=== PATIENT | female | born 1960 | race African-American/Black ===

== ENCOUNTER 2019-09-27 22:25 | Observation (INO) | payer BC ==
--- NOTE | 2019-09-27 22:29 | PDOC ---
History of Present Illness - General Stated Complaint: CHEST PAIN AND DIZZINESS - History of Present Illness Initial Comments: 09/27/19 22:52 59 year old woman on zoloft for 3 weeks, who presents with lightheadedness and hand numbness and tingling that occurred just prior to arrival. The patient reports that she felt "unlike herself." At the time she felt lightheaded she took her blood sugar and it was 98. She reports that her hand numbness nad tingling has resolved but she stills feels some lightheadedness. She denies any nausea, vomiting, fever, cough, congestion, chest pain, shortness of breath, dysuria, hematuria, diarrhea, constipations or abdominal pain. She has no other complaints. ROS GENERAL/CONSTITUTIONAL: No fever or chills. No weakness. HEAD, EYES, EARS, NOSE AND THROAT: No change in vision. No ear pain or discharge. No sore throat. CARDIOVASCULAR: No chest pain or shortness of breath RESPIRATORY: No cough, wheezing, or hemoptysis. GASTROINTESTINAL: No nausea, vomiting, diarrhea or constipation. GENITOURINARY: No dysuria, frequency, or change in urination. MUSCULOSKELETAL: No joint or muscle swelling or pain. No neck or back pain. SKIN: No rash NEUROLOGIC: No headache, vertigo, loss of consciousness, or change in strength/sensation. ENDOCRINE: No increased thirst. No abnormal weight change HEMATOLOGIC/LYMPHATIC: No anemia, easy bleeding, or history of blood clots. ALLERGIC/IMMUNOLOGIC: No hives or skin allergy. PE GENERAL: Awake, alert, and fully oriented, in no acute distress HEAD: No signs of trauma, normocephalic, atraumatic EYES: PERRLA, EOMI, sclera anicteric, conjunctiva clear ENT: oropharynx clear without exudates. Moist mucosa NECK: Normal ROM, supple LUNGS: No distress, speaks full sentences, clear to auscultation bilaterally HEART: Regular rate and rhythm, normal S1 and S2, no murmurs, rubs or gallops, peripheral pulses normal and equal bilaterally. ABDOMEN: Soft, nontender. No guarding, no rebound. No masses EXTREMITIES : Normal inspection, Normal range of motion, no edema. No clubbing or cyanosis. NEUROLOGICAL: Cranial nerves II through XII grossly intact. Normal speech, normal gait, no focal sensorimotor deficits, negative romberg SKIN: Warm, Dry, normal turgor, no rashes or lesions noted Assessment and Plan 59 year old woman on zoloft for 3 weeks, who presents with lightheadedness and hand numbness and tingling that occurred just prior to arrival. The patient reports that she felt "unlike herself." Consider cva vs acs vs electroy,lte derangment vs thyroid dernamgent vs infectious Fever on intial vitals entered incorrectly, pt afebrile NIHSS 0 Sign out to overnight resident Lori Mujica PGY2 Emergency Medicine 09/27/19 23:03 NIH Stroke Scale - Last Known Well Date/Time & Onset Date Last Known Well: 09/27/19 Time Last Known Well: 22:00 - Initial Evaluation Level of consciousness: Alert Ask patient the month and their age: Answers both correctly Ask patient to open & close eyes; make fist and let go: Obeys both correctly Best gaze (horizontal eye movement): Normal Visual field testing: No visual field loss Facial paresis (Show teeth/raise eyebrows/close eyes tight): Normal symmetrical movement Motor Function: Left Arm: Normal Motor Function: Right Arm: Normal (extends arm 90 (or 45) degrees for 10 seconds without drift Motor Function: Left Leg: Normal (extends leg 30 degrees for 5 seconds without drift) Motor Function: Right Leg: Normal (extends leg 30 degrees for 5 seconds without drift) Limb Ataxia: No ataxia Sensory(Use pinprick test arms,legs,trunk,face/side to side): Normal Best language (Describe picture, name items, read sentences): No Aphasia Dysarthria (read several words): Normal articulation Extinction and Inattention: No abnormality - Total Score NIH Stroke Scale Score: 0 Past History - Medical History Allergies/Adverse Reactions: Allergies Allergy/AdvReac Type Severity Reaction Status Date / Time Penicillins Allergy Verified 09/27/19 22:43 ED Treatment Course - LABORATORY CBC & Chemistry Diagram: 09/29/19 05:35 09/29/19 05:35 Discharge - Discharge Information Problems reviewed: Yes Clinical Impression/Diagnosis: Near syncope Hypothyroid Qualifiers: Hypothyroidism type: unspecified Qualified Code(s): E03.9 - Hypothyroidism, unspecified Condition: Stable Disposition: HOME - Follow up/Referral - Patient Discharge Instructions - Post Discharge Activity Vital Signs - Vital Signs Temperature: 97.4 F Temperature source: Oral Blood Pressure: 114/65
--- NOTE | 2019-09-27 23:06 | PDOC ---
Documentation entered by Ludy Finley SCRIBE, acting as scribe for Jonathan Chatman MD. Jonathan Chatman MD: This documentation has been prepared by the Tushar jung Brenda, SCRIBE, under my direction and personally reviewed by me in its entirety. I confirm that the documentation accurately reflects all work, treatment, procedures, and medical decision making performed by me. Attending Attestation - Resident Resident Name: Lori Mujica - ED Attending Attestation I have performed the following: I have examined & evaluated the patient, The case was reviewed & discussed with the resident, I agree w/resident's findings & plan, Exceptions are as noted - HPI HPI: 09/27/19 23:06 59 F with no PMH presents to ED with dizziness. Pt states that she was rounding in the hospital when she suddenly felt very dizzy, as if she were about to faint. Pt denies room-spinning sensation. Pt also notes that she felt very "out of it". She describes it as a disoriented feeling. Pt denies any weakness/numbness in any extremity. Denies any slurred speech or facial droop. Pt states that the symptoms began about 1 hour prior to arrival to ED. She no longer feels lightheaded but still feels disoriented. Denies CP/SOB. Denies N/V/D. Denies F/C. Denies OLIVERA/neck pain. - Physicial Exam PE: 09/27/19 23:08 "GENERAL: Awake, alert, and fully oriented, in no acute distress. HEAD: No signs of trauma EYES: PERRLA, EOMI, sclera anicteric, conjunctiva clear ENT: Auricles normal inspection, hearing grossly normal, nares patent, oropharynx clear without exudates. Moist mucosa NECK: Nontender, no stepoffs, Normal ROM, supple, no lymphadenopathy, JVD, or masses LUNGS: Breath sounds equal, clear to auscultation bilaterally. No wheezes, and no crackles HEART: Regular rate and rhythm, normal S1 and S2, no murmurs, rubs or gallops ABDOMEN: Soft, nontender, normoactive bowel sounds. No guarding, no rebound. No masses EXTREMITIES: Normal range of motion, no edema. No clubbing or cyanosis. No cord s, erythema, or tenderness NEUROLOGICAL: Cranial nerves II through XII intact. 5/5 strength and sensation in all extremities, Normal speech, normal gait, normal cerebellar function SKIN: Warm, Dry, normal turgor, no rashes or lesions noted. - Medical Decision Making 09/27/19 23:08 59 F with lightheadedness and disorientation. Has completely normal neuro exam in ED, ambulatory with steady gait. No evidence of CVA. Will r/o ACS with EKG and trop. - Labs, trop - EKG - CXR - CT head 09/28/19 00:05 EKG unremarkable Labs wnl CT head normal Pt signed out to Dr. Gonzalez at 12AM, pending 2nd trop and re-evaluation Discharge - Discharge Information Problems reviewed: Yes Clinical Impression/Diagnosis: Near syncope Hypothyroid Qualifiers: Hypothyroidism type: unspecified Qualified Code(s): E03.9 - Hypothyroidism, unspecified Condition: Stable - Follow up/Referral - Patient Discharge Instructions - Post Discharge Activity
[2019-09-27] MEDS ORDERED: SODIUM CHLORIDE 1,000 ML IV STA (23:08)
[2019-09-27 23:22] LABS: BASO % 0.7 % (0-2.0); HEMATOCRIT 38.1 % (32.4-45.2); HEMOGLOBIN 12.9 GM/dL (10.7-15.3); LYMPH % 48.5 % (8-40); MCH 30.6 pg (25.7-33.7); MCHC 33.7 g/dl (32.0-36.0); MEAN CELL VOLUME 90.6 fl (80-96); MEAN PLT VOLUME 8.5 fl (7.5-11.1); MONO % 9.8 % (3.8-10.2); PLATELET COUNT 270 K/MM3 (134-434); RBC 4.21 M/mm3 (3.60-5.2); RDW 13.1 % (11.6-15.6); WHITE BLOOD COUNT 8.1 K/mm3 (4.0-10.0)
[2019-09-27 23:47] LABS: ALK PHOS 46 U/L (45-117); ANION GAP 7 MMOL/L (8-16); BILIRUBIN,TOTAL 0.3 mg/dL (0.2-1); BLOOD UREA NITROGEN 25.2 mg/dL (7-18); CALCIUM 8.9 mg/dL (8.5-10.1); CHLORIDE 102 mmol/L (98-107); CO2 27 mmol/L (21-32); CREATININE 0.9 mg/dL (0.55-1.3); GLUCOSE,RANDOM 119 mg/dL (74-106); N-TERMINAL BNP 35.7 pg/ml (5-125); POTASSIUM 4.2 mmol/L (3.5-5.1); SGOT/AST 15 U/L (15-37); SGPT/ALT 22 U/L (13-61); SODIUM 137 mmol/L (136-145); TOT PROT 7.4 g/dl (6.4-8.2)
--- NOTE | 2019-09-28 00:08 | PDOC ---
*Physical Exam - Vital Signs Last Vital Signs Temp Pulse Resp BP Pulse Ox 97.4 F L 70 20 114/65 100 09/27/19 23:55 09/27/19 22:39 09/27/19 22:39 09/27/19 23:55 09/27/19 22:39 ED Treatment Course - LABORATORY CBC & Chemistry Diagram: 09/27/19 23:04 09/27/19 23:04 - ADDITIONAL ORDERS Additional order review: Laboratory Results 09/27/19 09/27/19 23:04 23:04 Sodium 137 Potassium 4.2 Chloride 102 Carbon Dioxide 27 Anion Gap 7 L BUN 25.2 H Creatinine 0.9 Est GFR (CKD-EPI)AfAm 81.69 Est GFR (CKD-EPI)NonAf 70.48 Random Glucose 119 H Calcium 8.9 Total Bilirubin 0.3 AST 15 ALT 22 Alkaline Phosphatase 46 Creatine Kinase 106 Troponin I < 0.02 B-Natriuretic Peptide 35.7 Total Protein 7.4 Albumin 4.0 Serum , Qual Negative 09/27/19 23:04 RBC 4.21 MCV 90.6 MCHC 33.7 RDW 13.1 MPV 8.5 Neutrophils % 38.0 L Lymphocytes % 48.5 H Monocytes % 9.8 Eosinophils % 3.0 Basophils % 0.7 Medical Decision Making - Medical Decision Making Pt was signed out to me by resident Dr. Mujica, who explained the presentation, ED course, any pending results, and needed interventions. Pending results include CTH and repeat troponin @2am. Pt is currently stable and is lying comfortably. CTH without acute pathology. Labs WNL Pending repeat trop @2 am. 09/28/19 00:07 Pt persistently light-headed TSH elevated, sent T4 and second troponin Pre-renal, likely dehydration, dieting. Pts mother had CA at age 50s. Pt to be admitted for tele/obs for further monitoring and symptomatic impro vement. Given persistent symptoms and early cardiac in family, pt is not safe discharge home. 09/28/19 03:14 Discharge - Discharge Information Problems reviewed: Yes Clinical Impression/Diagnosis: Near syncope Hypothyroid Qualifiers: Hypothyroidism type: unspecified Qualified Code(s): E03.9 - Hypothyroidism, unspecified Condition: Stable - Admission Yes - Follow up/Referral - Patient Discharge Instructions - Post Discharge Activity
--- NOTE | 2019-09-28 00:16 | PDOC ---
*Physical Exam - Vital Signs Last Vital Signs Temp Pulse Resp BP Pulse Ox 97.4 F L 70 20 114/65 100 09/27/19 23:55 09/27/19 22:39 09/27/19 22:39 09/27/19 23:55 09/27/19 22:39 Heart Score/ECG Review - History History: Slightly suspicious - Electrocardiogram EKG: Non specific repolarization disturbance - Age Age: 45-65 - Risk Factors Risk Factors Heart Score: Yes Positive family hx of cardiac disease, Yes Hx O besity Based on the list above the patient has:: 1-2 risk factors - Troponin Troponin: </= normal limit - Score Heart Score - Total: 3 ED Treatment Course - LABORATORY CBC & Chemistry Diagram: 09/27/19 23:04 09/27/19 23:04 - ADDITIONAL ORDERS Additional order review: Laboratory Results 09/27/19 09/27/19 23:04 23:04 Sodium 137 Potassium 4.2 Chloride 102 Carbon Dioxide 27 Anion Gap 7 L BUN 25.2 H Creatinine 0.9 Est GFR (CKD-EPI)AfAm 81.69 Est GFR (CKD-EPI)NonAf 70.48 Random Glucose 119 H Calcium 8.9 Total Bilirubin 0.3 AST 15 ALT 22 Alkaline Phosphatase 46 Creatine Kinase 106 Troponin I < 0.02 B-Natriuretic Peptide 35.7 Total Protein 7.4 Albumin 4.0 Serum , Qual Negative 09/27/19 23:04 RBC 4.21 MCV 90.6 MCHC 33.7 RDW 13.1 MPV 8.5 Neutrophils % 38.0 L Lymphocytes % 48.5 H Monocytes % 9.8 Eosinophils % 3.0 Basophils % 0.7 Medical Decision Making - Medical Decision Making 09/28/19 00:13 Pt signed out to me. She works at [employer] and she had an episode of dizziness and feeling unwell on the patient floors at work. 09/28/19 00:18 Pt has one normal blood test set. SHe will have a rtepeat cardiac enzyme test done at 2AM 09/28/19 02:44 Patient Name: HOSEA JOHNSON THIS IS A PRELIMINARY REPORT FROM [facility] EXAM: CT Head wo IMAGES: 222 EXAM DATE AND TIME: 2019-09-27 23:27:39 HISTORY: 59 year old woman: Stroke symptoms. COMPARISON: None TECHNIQUE: Non-contrast axial images were obtained. Coronal and sagittal images were also generated. FINDINGS: The cerebral sulci and ventricles are normal in size. There are no intracranial hemorrhages, extra-axial fluid collections or evidence of an intra-axial mass lesion. There is no clear evidence of chronic ischemic demyelination. Cerebral ortega/white matter differentiation is preserved, without clear evidence of an acute ischemic lesion at this time. Orbital and petrous structures, cerebellopontine angles, and posterior fossa appear unremarkable. The paranasal and mastoid sinuses are clear. IMPRESSION: Normal CT scan of the head. No evidence of acute or chronic ischemic change. No intracranial hemorrhages, extra-axial fluid collections or intra-axial mass lesion. Discharge - Discharge Information Problems reviewed: Yes Clinical Impression/Diagnosis: Near syncope Condition: Guarded - Follow up/Referral - Patient Discharge Instructions - Post Discharge Activity
[2019-09-28 02:08] LABS: MAGNESIUM 2.2 mg/dL (1.8-2.4)
[2019-09-28 03:19] LABS: MAGNESIUM 2.3 mg/dL (1.8-2.4)
--- NOTE | 2019-09-28 03:23 | PN ---
Teaching Attending Note Name of Resident: Tawana Zhu ATTENDING PHYSICIAN STATEMENT I saw and evaluated the patient. I reviewed the resident's note and discussed the case with the resident. I agree with the resident's findings and plan as documented. SUBJECTIVE: 59 F with no PMH presents to ED with presyncope OBJECTIVE: VSS Gen NAD well appearing Cardiac s1 s2 no m/r/g CTA BL Lung Abdomen obese soft non distended Neuro exam non focal Ext no edema Labs: grossly unremarkable ASSESSMENT AND PLAN: 59 F with no PMH presents to ED with lightheadedness and presyncope feeling like things are blacking out and occurred in seated position. Trop and EKG X3 Tele monitoring Orthostatic VS Tele monitoring Had symptoms from seated position Orthostatic VS DVT Px HSQ 5K BID Diet regular
--- NOTE | 2019-09-28 03:43 | HP ---
CHIEF COMPLAINT: lightheadedness x 1 day PCP: HISTORY OF PRESENT ILLNESS: 59 y/o F with no significant PMH who presents today for lightheadedness x 1 day. Per pt, she was [facility] when she felt lightheaded. States that she felt as if she would pass out, however never syncop ized or had LOC. Had a recent dietary change where she has been having 6 small meals a day of 1400 calories total. Denies use of any supplements, dieting aids, or herbs/special drinks. Denies recent stressors. Has tried to stay hydrated. Denies OLIVERA, fever, chills, SOB, chest pain or pressure or changes in urinary or bowel function. 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 She was also started on zoloft recently (3 weeks ago). ER course was notable for: (1) 1L IV NS (2) TSH 5.50, repeat 4.90 (3) trop (-) x 1 Recent Travel: denies PAST MEDICAL HISTORY: as above PAST SURGICAL HISTORY: breast reduction sx Social History: Smoking: denies Alcohol: occasional wine Drugs: denies Allergies Penicillins Allergy (Verified 09/27/19 22:43) - pruritis HOME MEDICATIONS: Home Medications Medication Instructions Recorded Sertraline HCl [Zoloft] 25 mg PO DAILY 09/27/19 PHYSICAL EXAMINATION Vital Signs - 24 hr 09/27/19 09/27/19 09/28/19 22:39 23:55 03:07 Temperature 97.5 F L 97.4 F L 97.3 F L Pulse Rate 70 Pulse Rate [ 83 Right Radial] Respiratory 20 18 Rate Blood Pressure 99/84 114/65 Blood Pressure 126/70 [Left Arm] O2 Sat by Pulse 100 100 Oximetry (%) general: resting, in NAD HEENT: NCAT neck: supple cardio: S1, S2 , RRR. no r/m/g pulm: CTA b/l. 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 Laboratory Results - last 24 hr 09/27/19 09/27/19 09/27/19 23:04 23:04 23:04 WBC 8.1 RBC 4.21 Hgb 12.9 Hct 38.1 MCV 90.6 MCH 30.6 MCHC 33.7 RDW 13.1 Plt Count 270 MPV 8.5 Absolute Neuts (auto) 3.1 Neutrophils % 38.0 L Lymphocytes % 48.5 H Monocytes % 9.8 Eosinophils % 3.0 Basophils % 0.7 Nucleated RBC % 0 Sodium 137 Potassium 4.2 Chloride 102 Carbon Dioxide 27 Anion Gap 7 L BUN 25.2 H Creatinine 0.9 Est GFR (CKD-EPI)AfAm 81.69 Est GFR (CKD-EPI)NonAf 70.48 Random Glucose 119 H Hemoglobin A1c % Calcium 8.9 Phosphorus 4.0 Magnesium 2.2 Total Bilirubin 0.3 AST 15 ALT 22 Alkaline Phosphatase 46 Creatine Kinase 106 Troponin I < 0.02 B-Natriuretic Peptide 35.7 Total Protein 7.4 Albumin 4.0 TSH 5.50 H Serum , Qual Negative 09/27/19 09/28/19 23:04 01:56 WBC RBC Hgb Hct MCV MCH MCHC RDW Plt Count MPV Absolute Neuts (auto) Neutrophils % Lymphocytes % Monocytes % Eosinophils % Basophils % Nucleated RBC % Sodium Potassium Chloride Carbon Dioxide Anion Gap BUN Creatinine Est GFR (CKD-EPI)AfAm Est GFR (CKD-EPI)NonAf Random Glucose Hemoglobin A1c % 6.1 Calcium Phosphorus 4.0 Magnesium 2.3 Total Bilirubin AST ALT Alkaline Phosphatase Creatine Kinase Troponin I B-Natriuretic Peptide Total Protein Albumin TSH 4.90 H Serum , Qual ASSESSMENT/PLAN: 59 y/o F with no significant PMH who presents today for lightheadedness x 1 day. #Presyncope -possible etiologies include: 2/2 zoloft use, thyroid dz, dehydration (pre- renal), r/o arrhythmia -also possible 2/2 dietary caloric restriction -TSH elevated, f/u free t4 -will order utox -will check orthostatics. however currently has received IVF -tele monitoring -trop (-) x 1. will c/t trend -no acute changes on EKG -IV NS 100 cc/hr -will hold zoloft #pre-renal SUMA likely 2/2 dehydration -IVF as above, 100 cc/hr -c/t monitor #health maintenance #obesity -f/u a1c, lipid panel -dietary consult #F/E/N IV NS 100 cc/hr continue to follow lytes reg diet #PPX DVT: early ambulation #Dispo tele-obs anticipate d/c 24-48 hrs Visit type - Emergency Visit Emergency Visit: Yes ED Registration Date: 09/28/19 Care time: The patient presented to the Emergency Department on the above date and was hospitalized for further evaluation of their emergent condition. - New Patient This patient is new to me today: Yes Date on this admission: 09/28/19 - Critical Care Critical Care patient: No
[2019-09-28] MEDS: SODIUM CHLORIDE 1,000 ML IV SCH ×2 (05:01→22:38)
--- NOTE | 2019-09-28 11:19 | PN ---
<Lori Pulliam - Last Filed: 09/28/19 16:36> Physical Exam: SUBJECTIVE: Patient seen and examined. C/o mild lightheadedness. OBJECTIVE: Vital Signs Period Temp Pulse Resp BP Sys/Ruiz Pulse Ox Last 24 Hr 97.3 F-97.5 F 70-83 16-20 99-126/63-84 98-100 GENERAL: The patient is awake, alert, and fully oriented, in no acute distress. HEENT: NCAT. MMM. LUNGS: Breath sounds equal, clear to auscultation bilaterally, no wheezes, no crackles, no accessory muscle use. HEART: Regular rate and rhythm, S1, S2 without murmur, rub or gallop. ABDOMEN: Soft, nontender, nondistended, normoactive bowel sounds, no guarding. EXTREMITIES: 2+ pulses, warm, well-perfused, no edema. NEUROLOGICAL: Cranial nerves II through XII grossly intact. Romberg's negative. PSYCH: Normal mood, normal affect. SKIN: Warm, dry, normal turgor, no rashes or lesions noted Laboratory Results - last 24 hr 09/27/19 09/27/19 09/27/19 23:04 23:04 23:04 WBC 8.1 RBC 4.21 Hgb 12.9 Hct 38.1 MCV 90.6 MCH 30.6 MCHC 33.7 RDW 13.1 Plt Count 270 MPV 8.5 Absolute Neuts (auto) 3.1 Neutrophils % 38.0 L Lymphocytes % 48.5 H Monocytes % 9.8 Eosinophils % 3.0 Basophils % 0.7 Nucleated RBC % 0 Sodium 137 Potassium 4.2 Chloride 102 Carbon Dioxide 27 Anion Gap 7 L BUN 25.2 H Creatinine 0.9 Est GFR (CKD-EPI)AfAm 81.69 Est GFR (CKD-EPI)NonAf 70.48 Random Glucose 119 H Hemoglobin A1c % Calcium 8.9 Phosphorus 4.0 Magnesium 2.2 Total Bilirubin 0.3 AST 15 ALT 22 Alkaline Phosphatase 46 Creatine Kinase 106 Troponin I < 0.02 B-Natriuretic Peptide 35.7 Total Protein 7.4 Albumin 4.0 TSH 5.50 H Free T4 Serum , Qual Negative 09/27/19 09/28/19 09/28/19 23:04 01:56 05:00 WBC RBC Hgb Hct MCV MCH MCHC RDW Plt Count MPV Absolute Neuts (auto) Neutrophils % Lymphocytes % Monocytes % Eosinophils % Basophils % Nucleated RBC % Sodium Potassium Chloride Carbon Dioxide Anion Gap BUN Creatinine Est GFR (CKD-EPI)AfAm Est GFR (CKD-EPI)NonAf Random Glucose Hemoglobin A1c % 6.1 Calcium Phosphorus 4.0 Magnesium 2.3 Total Bilirubin AST ALT Alkaline Phosphatase Creatine Kinase Troponin I < 0.02 < 0.02 B-Natriuretic Peptide Total Protein Albumin TSH 4.90 H Free T4 1.07 Serum , Qual Active Medications Generic Name Dose Route Start Last Admin Trade Name Freq PRN Reason Stop Dose Admin Sodium Chloride 1,000 mls @ 100 mls/hr 09/28/19 03:45 09/28/19 05:01 Normal Saline - IV 100 mls/hr ASDIR CHADD Administration IMAGING: * CXR: No pneumothorax is seen. There is no obvious infiltrate or pleural effusion. The heart, jim and mediastinum demonstrate no obvious pathology. The osseous thorax as visualized demonstrates no gross acute abnormality. * CT head: Negative exam. no discrete noncontrast CT pathology is noted. ASSESSMENT/PLAN: 59 y.o. 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 #Presyncope -possible etiologies include: 2/2 zoloft use, thyroid dz, dehydration (+ azotemia), r/o arrhythmia, dietary restrictions -TSH 5.5; T4 WNL. -- will need repeat TFT's in 6-8 weeks as outpatient -orthostatics negative; f/u repeat today -s/p 1L IVF -trop negative x 3 -continue cardiac monitoring -EKG shows no signs of ischemia -f/u cardio recs -holding home zoloft #pre-renal azotemia likely 2/2 dehydration -s/p 1L NS -cont to monitor #Pre-diabetes mellitus #Obesity -A1c 6.1 % -f/u lipid panel -coil inspector consulted #FEN -no standing fluids -monitor & replete lytes prn -reg diet #PPX -DVT: early ambulation #Dispo telemetry Visit type - Emergency Visit Emergency Visit: Yes ED Registration Date: 09/28/19 Care time: The patient presented to the Emergency Department on the above date and was hospitalized for further evaluation of their emergent condition. - New Patient This patient is new to me today: Yes Date on this admission: 09/28/19 - Critical Care Critical Care patient: No ATTENDING PHYSICIAN STATEMENT I saw and evaluated the patient. I reviewed the resident's note and discussed the case with the resident. I agree with the resident's findings and plan as documented. SUBJECTIVE: OBJECTIVE: ASSESSMENT AND PLAN: <Carlos Alberto Barbosa - Last Filed: 09/28/19 17:11> Physical Exam: SUBJECTIVE: Patient seen and examined at bedside. States she feels better. "Still not 100%" per patient. Not on telemetry in ER. Orthostatics negative. OBJECTIVE: Vital Signs Period Temp Pulse Resp BP Sys/Ruiz Pulse Ox Last 24 Hr 97.3 F-97.5 F 70-83 16-20 99-126/63-84 97-100 On exam she is AAOx3. RRR on cardiac exam. ABD is soft non tender non distended. Moist oral mucosa. no conjunctival pallor. trace edema of bilateral lower extremities. Laboratory Results - last 24 hr 09/27/19 09/27/19 09/27/19 23:04 23:04 23:04 WBC 8.1 RBC 4.21 Hgb 12.9 Hct 38.1 MCV 90.6 MCH 30.6 MCHC 33.7 RDW 13.1 Plt Count 270 MPV 8.5 Absolute Neuts (auto) 3.1 Neutrophils % 38.0 L Lymphocytes % 48.5 H Monocytes % 9.8 Eosinophils % 3.0 Basophils % 0.7 Nucleated RBC % 0 Sodium 137 Potassium 4.2 Chloride 102 Carbon Dioxide 27 Anion Gap 7 L BUN 25.2 H Creatinine 0.9 Est GFR (CKD-EPI)AfAm 81.69 Est GFR (CKD-EPI)NonAf 70.48 Random Glucose 119 H Hemoglobin A1c % Calcium 8.9 Phosphorus 4.0 Magnesium 2.2 Total Bilirubin 0.3 AST 15 ALT 22 Alkaline Phosphatase 46 Creatine Kinase 106 Troponin I < 0.02 B-Natriuretic Peptide 35.7 Total Protein 7.4 Albumin 4.0 Triglycerides Cholesterol Total LDL Cholesterol HDL Cholesterol TSH 5.50 H Free T4 Serum , Qual Negative 09/27/19 09/28/19 09/28/19 23:04 01:56 05:00 WBC RBC Hgb Hct MCV MCH MCHC RDW Plt Count MPV Absolute Neuts (auto) Neutrophils % Lymphocytes % Monocytes % Eosinophils % Basophils % Nucleated RBC % Sodium Potassium Chloride Carbon Dioxide Anion Gap BUN Creatinine Est GFR (CKD-EPI)AfAm Est GFR (CKD-EPI)NonAf Random Glucose Hemoglobin A1c % 6.1 Calcium Phosphorus 4.0 Magnesium 2.3 Total Bilirubin AST ALT Alkaline Phosphatase Creatine Kinase Troponin I < 0.02 < 0.02 B-Natriuretic Peptide Total Protein Albumin Triglycerides 75 Cholesterol 152 Total LDL Cholesterol 95 HDL Cholesterol 39 L TSH 4.90 H Free T4 1.07 Serum , Qual Active Medications Generic Name Dose Route Start Last Admin Trade Name Freq PRN Reason Stop Dose Admin Sodium Chloride 1,000 mls @ 100 mls/hr 09/28/19 03:45 09/28/19 05:01 Normal Saline - IV 100 mls/hr ASDIR CHADD Administration ASSESSMENT/PLAN: Spoke with Dr. Sethi from endocrinology. Patient does not need thyroid replacement. Likely sick wuthyroid. f/u TFTs in 6-8 weeks as outpatient. She will f/u with amrita. Observe on telemetry. See admitting H&P done earlier this AM. Rest as per resident note above. Visit type - Emergency Visit Emergency Visit: Yes ED Registration Date: 09/28/19 Care time: The patient presented to the Emergency Department on the above date and was hospitalized for further evaluation of their emergent condition. - New Patient This patient is new to me today: Yes Date on this admission: 09/28/19 - Critical Care Critical Care patient: No ATTENDING PHYSICIAN STATEMENT I saw and evaluated the patient. I reviewed the resident's note and discussed the case with the resident. I agree with the resident's findings and plan as documented. SUBJECTIVE: OBJECTIVE: ASSESSMENT AND PLAN:
--- NOTE | 2019-09-28 13:49 | EKG ---
Test Reason : Blood Pressure : / mmHG Vent. Rate : 067 BPM Atrial Rate : 067 BPM P-R Int : 168 ms QRS Dur : 066 ms QT Int : 426 ms P-R-T Axes : 036 018 014 degrees QTc Int : 450 ms NORMAL SINUS RHYTHM NONSPECIFIC ST ABNORMALITY BORDERLINE ECG Confirmed by MD JENNIFER, ALEX ([id number]) on 09/28/2019 1:49:19 PM Referred By: Confirmed By:ALEX RODRIGUEZ MD
--- NOTE | 2019-09-28 15:45 | CON.CARD ---
Consult Consult Specialty:: cardiology Reason for Consultation:: dizziness - History of Present Illness History of Present Illness: 09/27/19 23:06 Ms. Santo is a 59 yr old black woman (b. [employer]) with PMHx depression (exacerbated by the of her brother a few months ago; she has been taking Zoloft for the past 3 weeks), obese (on 6-small meals a day diet), now presents to ED with dizziness. 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 Pt denies room-spinning sensation. Pt also notes that she felt very "out of it". She describes it as a disoriented feeling. Pt denies any weakness/numbness in any extremity. Denies any slurred speech or facial droop. Pt states that the symptoms began at 8 pm, about 1 hour prior to arrival to ED. She had been working all day (most at the computer, then got up to make rounds). She no longer feels lightheaded but still feels disoriented. She says her BP was noted elevated (160 systolic) in the ER. Denies palpitations. Denies CP/SOB. Denies N/V/D. Denies F/C. Denies OLIVERA/neck pain. Mother with hx anxiety/panic attacks; had NH in her late 50s. Pt was going to the gym regularly until pandemic started, and exercised without symptoms. Denies hx syncope. Never smoked Occasional glass of wine. LMP 2 yrs ago - History Source History Provided By: Patient, Medical Record Limitations to Obtaining History: No Limitations - Past Medical History Cardio/Vascular: Yes: HTN, Hyperlipdemia Reproductive: Yes: Postmenopausal ...: No Heme/Onc: No: Anemia Psych: Yes: Depression - Past Surgical History Additional Surgical History: bilateral breast reduction at age 31 - Alcohol/Substance Use Hx Alcohol Use: Yes History of Substance Use: reports: None - Smoking History Smoking history: Never smoked Have you smoked in the past 12 months: No Home Medications - Allergies Allergies/Adverse Reactions: Allergies Allergy/AdvReac Type Severity Reaction Status Date / Time Penicillins Allergy Verified 09/27/19 22:43 - Home Medications Home Medications: Ambulatory Orders Sertraline HCl [Zoloft] 25 mg PO DAILY 09/27/19 Family Medical History Family Hx Cardiac Disorders: Mother (NH in her 50s) Review of Systems - Review of Systems Constitutional: reports: No Symptoms Eyes: reports: No Symptoms HENT: reports: No Symptoms Neck: reports: No Symptoms Cardiovascular: reports: No Symptoms Respiratory: reports: No Symptoms Gastrointestinal: reports: No Symptoms Genitourinary: reports: No Symptoms Breasts: reports: No Symptoms Reported Musculoskeletal: reports: No Symptoms Integumentary: reports: No Symptoms Neurological: reports: No Symptoms Endocrine: reports: No Symptoms Hematology/Lymphatic: reports: No Symptoms Psychiatric: reports: Depression - Risk Factors Known Risk Factors: Yes: Age, Hypertension, Physical Inactivity, Race, Other (postmenopausal; depression; obese) Vital Signs: Vital Signs Temperature 97.5 F L 09/28/19 14:32 Pulse Rate 74 09/28/19 14:32 Respiratory Rate 16 09/28/19 14:32 Blood Pressure 107/70 09/28/19 14:32 O2 Sat by Pulse Oximetry (%) 97 09/28/19 14:32 Constitutional: Yes: Anxious Eyes: Yes: WNL HENT: Yes: WNL Neck: Yes: WNL Respiratory: Yes: WNL Gastrointestinal: Yes: WNL Renal/: Yes: WNL Cardiovascular: Yes: WNL JVD: No Carotid Bruit: No PMI: Non-Displaced Heart Sounds: Yes: S1, S2 Musculoskeletal: Yes: WNL Extremities: Yes: WNL Edema: No Peripheral Pulses WNL: Yes Integumentary: Yes: WNL Neurological: Yes: WNL Psychiatric: Yes: Alert, Oriented, Other - Other Data Labs, Other Data: CBC, BMP 09/27/19 23:04 09/27/19 23:04 Troponin, BNP 09/27/19 09/28/19 09/28/19 23:04 01:56 05:00 Troponin I < 0.02 < 0.02 < 0.02 B-Natriuretic Peptide 35.7 Troponin, BNP 09/27/19 09/28/19 09/28/19 23:04 01:56 05:00 Troponin I < 0.02 < 0.02 < 0.02 B-Natriuretic Peptide 35.7 Abnormal Lab Results 09/27/19 09/27/19 09/28/19 23:04 23:04 01:56 Neutrophils % 38.0 L Lymphocytes % 48.5 H Anion Gap 7 L BUN 25.2 H Random Glucose 119 H HDL Cholesterol TSH 5.50 H 4.90 H 09/28/19 05:00 Neutrophils % Lymphocytes % Anion Gap BUN Random Glucose HDL Cholesterol 39 L TSH Assessment/Plan Dizziness Dehydration Depression Transiently elevated BP shortly after dizziness Denies syncope obesity ?thyroid disorder Plan: Orthostatic vital signs Hydration (was given IV fluids); f/u BUN/Cr and electrolytes. Pt has been on sertraline, which may contribute to dizziness. TNi < 0.02 x 3; EKG: NSR; nonspecific T wave changes. F/u TFTs. Telemetry Consider carotid artery US.
[2019-09-28 16:23] LABS: CHOLESTEROL 152 mg/dL (50-200); HDL CHOLESTEROL 39 mg/dL (40-60); LDL CHOLESTEROL (ONLY SJRH) 95 mg/dL (5-100); TRIGLYCERIDES 75 mg/dL (0-150)
[2019-09-28 17:38] VITALS: BMI 30.2
[2019-09-29] MEDS: SODIUM CHLORIDE 1,000 ML IV SCH (06:52)
[2019-09-29 06:55] LABS: ALBUMIN 3.5 g/dl (3.4-5.0); BILIRUBIN,TOTAL 0.2 mg/dL (0.2-1); BLOOD UREA NITROGEN 14.8 mg/dL (7-18); CALCIUM 8.6 mg/dL (8.5-10.1); CREATININE 0.9 mg/dL (0.55-1.3); MAGNESIUM 2.3 mg/dL (1.8-2.4); PHOSPHOROUS 3.6 mg/dL (2.5-4.9); POTASSIUM 4.5 mmol/L (3.5-5.1); TOT PROT 6.8 g/dl (6.4-8.2)
[2019-09-29 07:03] LABS: HEMATOCRIT 38.1 % (32.4-45.2); HEMOGLOBIN 12.4 GM/dL (10.7-15.3); MCH 29.6 pg (25.7-33.7); MCHC 32.5 g/dl (32.0-36.0); MEAN CELL VOLUME 91.3 fl (80-96); MEAN PLT VOLUME 8.8 fl (7.5-11.1); PLATELET COUNT 273 K/MM3 (134-434); RBC 4.17 M/mm3 (3.60-5.2); RDW 12.9 % (11.6-15.6); WHITE BLOOD COUNT 6.8 K/mm3 (4.0-10.0)
--- NOTE | 2019-09-29 09:13 | PN ---
Progress Note, Physician - Current Medication List Current Medications: Active Medications Sodium Chloride (Normal Saline -) 1,000 mls @ 100 mls/hr IV ASDIR CHADD Last Admin: 09/29/19 06:52 Dose: 100 mls/hr Documented by: - Objective Vital Signs: Vital Signs Temperature 97.5 F L 09/29/19 06:00 Pulse Rate 65 09/29/19 06:00 Respiratory Rate 18 09/29/19 08:13 Blood Pressure 116/63 09/29/19 06:00 O2 Sat by Pulse Oximetry (%) 98 09/29/19 08:13 Labs: CBC, BMP 09/29/19 05:35 09/29/19 05:35 Assessment/Plan Dizziness Dehydration Depression Transiently elevated BP shortly after dizziness Denies syncope obesity ?thyroid disorder Plan: No significant orthostatic changes. Now better hydrated. Hb WNL. Pt has been on sertraline, which may contribute to dizziness. TNi < 0.02 x 3; EKG: NSR; nonspecific T wave changes. Mildly elevated TSH; normal free T4. Telemetry: NSR; no arrhythmias BP well-controlled. If carotid artery US is unremarkable, from a cardiac standpoint pt may be followed as an outpatient.
[2019-09-29] MEDS ORDERED: ACETAMINOPHEN 325 MG TABLET (FP) PO ONE (09:18)
--- NOTE | 2019-09-29 16:14 | DS ---
Physical Exam: SUBJECTIVE: Patient seen and examined. No acute overnight telemetry events. Denies chest pain/ palpitations/ sob/ n/v/d/fevers/ chill/ myalgias. OBJECTIVE: Vital Signs Period Temp Pulse Resp BP Sys/Ruiz Pulse Ox Last 24 Hr 97.5 F-97.7 F 65-73 16-20 101-132/58-76 98-99 PHYSICAL EXAM GENERAL: aaox3, in no acute distress. HEENT: NCAT. MMM. LUNGS: ctabl, no w/r/r, no accessory muscle use. HEART:RRR, S1, S2 without m/r/g ABDOMEN: Soft, ntnd, + bs EXTREMITIES: 2+ pulses, warm, well-perfused, no edema. NEUROLOGICAL: Cranial nerves II through XII grossly intact. PSYCH: Normal mood, normal affect. SKIN: Warm, dry LABS Laboratory Results - last 24 hr 09/28/19 09/28/19 09/29/19 05:00 05:00 05:35 WBC RBC Hgb Hct MCV MCH MCHC RDW Plt Count MPV Sodium 141 Potassium 4.5 Chloride 109 H Carbon Dioxide 26 Anion Gap 6 L BUN 14.8 Creatinine 0.9 Est GFR (CKD-EPI)AfAm 81.69 Est GFR (CKD-EPI)NonAf 70.48 Random Glucose 104 Calcium 8.6 Phosphorus 3.6 Magnesium 2.3 Total Bilirubin 0.2 AST 12 L ALT 19 Alkaline Phosphatase 45 Total Protein 6.8 Albumin 3.5 Triglycerides 75 84 Cholesterol 152 155 Total LDL Cholesterol 95 94 HDL Cholesterol 39 L 39 L COVID-19 ([place]) Not detected 09/29/19 05:35 WBC 6.8 RBC 4.17 Hgb 12.4 Hct 38.1 MCV 91.3 MCH 29.6 MCHC 32.5 RDW 12.9 Plt Count 273 MPV 8.8 Sodium Potassium Chloride Carbon Dioxide Anion Gap BUN Creatinine Est GFR (CKD-EPI)AfAm Est GFR (CKD-EPI)NonAf Random Glucose Calcium Phosphorus Magnesium Total Bilirubin AST ALT Alkaline Phosphatase Total Protein Albumin Triglycerides Cholesterol Total LDL Cholesterol HDL Cholesterol COVID-19 ([place]) HOSPITAL COURSE: 59 y.o. 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 Patient had recently (3 weeks ag) started using zoloft and has been feeling a bit "off" since starting. Patient also found to have high tsh, normal free t4. Orthostatics negative x 3. No telemetry events while inpatient. negative troponins x3. Instructed to d/c zoloft gradually & f/u with psychiatrist regarding switching to new anxiety/ depression treatment. Patient also found to have HbA1c 6.1% consistent with pre-diabetes. Will need PCP f/u for repeat thyroid function tests & BGM. Proper diet and exercise has been discussed with patient. Patient is tolerating PO, self-ambulating. Vital signs stable. Hemodynamically stable. Date of Admission:09/28/19 * CXR: No pneumothorax is seen. There is no obvious infiltrate or pleural eff usion. The heart, jim and mediastinum demonstrate no obvious pathology. The osseous thorax as visualized demonstrates no gross acute abnormality. * CT head: Negative exam. no discrete noncontrast CT pathology is noted. Date of Discharge: 09/29/19 Minutes to complete discharge: 36 <Lori Pulliam - Last Filed: 09/29/19 16:06> Physical Exam: SUBJECTIVE: Patient seen and examined OBJECTIVE: PHYSICAL EXAM GENERAL: The patient is awake, alert, and fully oriented, in no acute distress. HEAD: Normal with no signs of trauma. EYES: PERRL, extraocular movements intact, sclera anicteric, conjunctiva clear. ENT: Ears normal, nares patent, oropharynx clear without exudates, moist mucous membranes. NECK: Trachea midline, full range of motion, supple. LUNGS: Breath sounds equal, clear to auscultation bilaterally, no wheezes, no crackles, no accessory muscle use. HEART: Regular rate and rhythm, S1, S2 without murmur, rub or gallop. ABDOMEN: Soft, nontender, nondistended, normoactive bowel sounds, no guarding, no rebound, no hepatosplenomegaly, no masses. EXTREMITIES: 2+ pulses, warm, well-perfused, no edema. NEUROLOGICAL: Cranial nerves II through XII grossly intact. Normal speech, gait not observed. PSYCH: Normal mood, normal affect. SKIN: Warm, dry, normal turgor, no rashes or lesions noted. LABS HOSPITAL COURSE: Date of Admission:09/28/19 Date of Discharge: 09/30/19 <Carlos Alberto Barbosa - Last Filed: 09/30/19 15:16> Discharge Summary Problems reviewed: Yes Current Active Problems Hypothyroid (Acute) Near syncope (Acute) <Lori Pulliam - Last Filed: 09/29/19 16:06> <Carlos Alberto aBrbosa - Last Filed: 09/30/19 15:16> Reason For Visit: HYPOTHYROIDISM, PRE SYNCOPE Condition: Stable - Instructions Diet, Activity, Other Instructions: Your visit: You were admitted to the hospital for lightheadedness. We did imaging of your neck and monitored you on a heart monitor; we did not find any abnormalities. You were treated with IV fluids with improvement of your symptoms. While here you had abnormal thyroid labs. You will need to have repeat thyroid function testing in 6-8 weeks. Medications changes: -Please discontinue zoloft as this may have been contributing to your symptoms. You will need to follow up with your psychiatrist in order to find a medication that works better for you. Follow up: -Visit with your Primary Care Provider in 2 weeks. If you do not have a primary care provider you may make an appointment with Dr. Barr at the [facility] clinic located at [address] [place] [address] ([phone]). -Cardiology Dr. Bailey in 2 weeks. Please follow up with Dr. Perez from endocrinology to have your thyroid testing repeated. Additional Instructions: -You are pre-diabetic. Be sure to maintain a diet low in sugars and fats. Maintain an exercise regimen, 5 days per week, 30 mins of activity. -Avoid sitting or standing up too quickly as this may cause symptoms of dizziness or lightheadedness. -You are being discharged to your home. -Please return to the Emergency Department if you experience worsening pain, fevers, chills, shortness of breath, or chest pain, or if you experience any worsening, new or concerning symptoms. Referrals: Tai Barr MD [Staff Physician] - Juan Bailey MD [Staff Physician] - Jossy Perez MD [Staff Physician] - 1 Month (endocrinology. Please call for appointment) Disposition: HOME This patient is new to me today: No Emergency Visit: No Critical Care patient: No - Discharge Referral Referred to [facility] No <Lori Pulliam - Last Filed: 09/29/19 16:06> ATTENDING PHYSICIAN STATEMENT I saw and evaluated the patient. I reviewed the resident's note and discussed the case with the resident. I agree with the resident's findings and plan as documented. SUBJECTIVE: OBJECTIVE: ASSESSMENT AND PLAN: <Lori Pulliam - Last Filed: 09/29/19 16:06> ATTENDING PHYSICIAN STATEMENT I saw and evaluated the patient. I reviewed the resident's note and discussed the case with the resident. I agree with the resident's findings and plan as documented. Attending attestation: Patient seen and examined at bedside during my rounds on the day of her dischar ge. Patient endorses feeling well and is asking to go home. Ultrasound Doppler of the carotids did not show any hemodynamically significant stenosis. Orthostatic vital signs on admission were borderline. Patient was clearly dehydrated given her BUN to creatinine ratio greater than 20. After being given IV fluids she is no longer orthostatic and her symptoms have resolved. On exam she is alert awake and oriented to person place and time. She has a regular rate and rhythm on cardiac exam. No events on telemetry. Lungs are clear to auscultation bilaterally. Abdomen is soft obese nontender nondistended. No CVA tenderness. Trace if any lower extremity edema. Neurological exam is within normal limits. Her gait is normal. Muscle strength is 5 out of 5 globally. Sensation is intact globally. Given her elevated TSH and normal free T4 the patient likely has sick euthyroid. I have advised the patient to follow-up with an warehouse consultant sometime within the next 8 to 12 weeks for repeat TFTs. I have given her referral for Dr. Perez. I have also discussed the case with Dr. Perez over the phone who stated he would be more than happy to see the patient in consultation as an outpatient. No thyroid replacement necessary at this time. The patient was also counseled on the importance of keeping herself well-hydrated and avoiding abrupt truncal positional changes if she starts to feel dizzy or lightheaded. Hospital course and discharge summary as per the resident's note. <Carlos Alberto Barbosa - Last Filed: 09/30/19 15:16>
[2019-09-29 16:30] VITALS: PULSE 71
[2019-10-23 15:50] VITALS: BP 114/65; TEMP 97.4
== END 2019-09-29 16:25 | disposition home or self-care (01) ==
LOC: JER 22:25 → JERBED 09-28 02:46 → J4S 09-28 18:14
PROVIDERS: ADMIT Internal Medicine; ATTEND Internal Medicine
PROC: 3E0337Z Introduction of Electrolytic and Water Balance Substance into Peripheral Vein, Percutaneous Approach (ICD-10-PCS; principal; 2019-09-28)
DX: R55 Syncope and collapse (principal); E86.0 Dehydration; E66.9 Obesity, unspecified; F41.8 Other specified anxiety disorders; E78.5 Hyperlipidemia, unspecified; Z68.30 Body mass index [BMI] 30.0-30.9, adult; E03.9 Hypothyroidism, unspecified; R73.03 Prediabetes; Z82.49 Family history of ischemic heart disease and other diseases of the circulatory system; I10 Essential (primary) hypertension; R94.6 Abnormal results of thyroid function studies; Z88.0 Allergy status to penicillin
CPT/HCPCS: 36415; 70450-TC; 71045-TC-FY; 80048; 80053; 80061; 82550; 83036; 83721; 83735; 83880; 84100; 84439; 84443; 84484; 84703; 85025; 85027; 93005; 93010; 93880-TC; 99285-25; G0378; U0003